=== PATIENT | female | born 1995 | race Caucasian/White ===

== ENCOUNTER 2020-08-23 18:32 | Emergency (ER) | payer OTHER, SELFPAY ==
[2020-08-23 18:43] VITALS: BP 123/80; PULSE 59; RESP 16; TEMP 36.8; O2SAT 100
--- NOTE | 2020-08-23 19:06 | ED.GENADULT ---
HPI - General Adult General Chief complaint: Extremity Injury, Upper Stated complaint: left arm/back pain Time Seen by Provider: 08/23/20 19:11 Source: patient and RN notes reviewed Mode of arrival: ambulatory Limitations: no limitations History of Present Illness HPI narrative: Patient presents today complaining of left shoulder and upper back pain since 3 PM. States the pain has been constant and has not improved or worsened. Denies any injury or trauma. Denies any numbness or tingling in the arm or hand. Prior to onset of symptoms, patient was taking an exam at school. Denies any heavy lifting recently. Denies any chest pain, shortness of breath, abdominal pain, or chills, any increased stress or anxiety. She took some Tylenol at 4 PM today without relief. States she also took some Tums. Currently rates her pain 08/26. MD complaint: Left shoulder and upper back pain Related Data Home Medications Medication Instructions Recorded Confirmed buspirone 5 mg PO DAILY 08/23/20 08/23/20 fluoxetine 40 mg PO DAILY 08/23/20 08/23/20 norethindrone-e.estradiol-iron 1 tablet PO DAILY 08/23/20 08/23/20 [Aurovela Fe 1.5/30 (28)] Allergies Allergy/AdvReac Type Severity Reaction Status Date / Time No Known Allergies Allergy Verified 08/23/20 18:36 Review of Systems Review of Systems: Narrative: CONSTITUTIONAL: Denies body aches, fever, chills, or sweats. EYES: Denies visual changes, redness, or discharge. ENT: Denies rhinorrhea, congestion, sore throat, or otalgia. CARDIOVASCULAR: Denies chest pain, palpitations, or edema. RESPIRATORY: Denies cough or dyspnea. GASTROINTESTINAL: Denies abdominal pain, nausea, vomiting, or diarrhea. GENITOURINARY: Denies dysuria or hematuria. SKIN: Denies rash, itching, or wounds. MUSCULOSKELETAL: Denies joint pain, or myalgia. + Left shoulder and upper back pain NEUROLOGIC: Denies headache, numbness, tingling, or weakness. PSYCH: Denies depression or anxiety. [facility] Past Medical History Medical History (Updated 08/23/20 @ 19:13 by Jerilyn Jordan, ANALYSIS CONSULTANT, BC) Anxiety Depression Social History Social History Gender identity (if verbalized by the patient): Female Comments At time of signature, I have reviewed and agree with nursing past medical, surgical, social and family history unless otherwise noted. Please see nursing chart for further information. There is no relevant family history pertinent to the presenting complaint Exam Narrative: Exam Narrative: GENERAL: Well-appearing, well-nourished, and in no acute distress. HEAD: Normocephalic, atraumatic. EYES: EOMI. No redness or drainage. Conjunctivae normal. ENT: Mucous membranes pink and moist. NECK: Normal AROM. Pain with ear to shoulders. Pain with full flexion of neck. Supple. No lymphadenopathy. Tenderness to left cervical paraspinal muscles. Pain extends to the superior left trapezius. Patient has several areas of point tenderness to this part of the muscle. No tenderness to the lower trapezius. Patient is tearful with palpation. CHEST: No respiratory distress. MUSCULOSKELETAL: No bony tenderness of the thoracic or lumbar spine. EXTREMITIES: Patient does have normal range of motion of the left shoulder and no bony tenderness about the left shoulder joint. She does have some pain with internal rotation of the shoulder. Distal sensation intact. Capillary refill normal. Radial pulse normal. Handgrips equal and strong. SKIN: Warm, dry, no rash. Capillary refill normal. Normal skin turgor. NEURO: No focal deficits. Alert and oriented x3. Gait steady. PSYCH: Normal affect. No signs of depression or anxiety. Course Vital Signs Vital signs: Vital Signs Temperature 98.3 F 08/23/20 18:43 Pulse Rate 59 L 08/23/20 18:43 Respiratory Rate 16 08/23/20 18:43 Blood Pressure 123/80 08/23/20 18:43 Pulse Oximetry 100 08/23/20 18:43 Temperature 98.3 F 08/23/20 18:43 Pulse Rate 59 L
== END 2020-08-23 19:15 | disposition home or self-care (01) ==
PROVIDERS: Emergency Provider Nurse Practitioner
DX: S46.812A Strain of other muscles, fascia and tendons at shoulder and upper arm level, left arm, initial encounter (principal); X58.XXXA Exposure to other specified factors, initial encounter; F41.9 Anxiety disorder, unspecified; F32.9 Major depressive disorder, single episode, unspecified
CPT/HCPCS: 99213; G0463

== ENCOUNTER 2020-09-29 11:36 | Outpatient (CLI) | payer OTHER, SELFPAY ==
[2020-10-05 00:56] LABS: NIL 0.01 IU/mL; Quantiferon TB Plus, 1T NEGATIVE (NEGATIVE); TB1-NIL 0.01 IU/mL
== END 2020-09-29 11:37 | disposition home or self-care (01) ==
DX: Z11.1 Encounter for screening for respiratory tuberculosis (principal)
CPT/HCPCS: 36415; 86480

== ENCOUNTER 2021-03-19 01:51 | Emergency (ER) | payer OTHER, SELFPAY ==
[2021-03-19] VITALS (7 sets, daily range): BP systolic 95–106; BP diastolic 53–62; PULSE 51–74; RESP 16–18; O2SAT 99–100
--- NOTE | 2021-03-19 02:08 | ECG_ITS ---
Measurements Intervals [place] Rate: 54 P: 58 MS: 145 QRS: 52 QRSD: 93 T: 60 QT: 494 QTc: 472 Interpretive Statements SINUS BRADYCARDIA BASELINE ARTIFACT- II, III, AVF, V3-V6 BORDERLINE ECG Electronically Signed On 03-19-2021 8:31:45 FLOOR REPRESENTATIVE by Jason Kaur D.O.
[2021-03-19 02:58] LABS: Basophils Absolute Auto 0.1 K/mm3 (0.0-0.1); Basophils Percent Auto 0.5 % (0.2-1.2); Eosinophils Absolute Auto 0.2 K/mm3 (0-0.3); Eosinophils Percent Auto 1.8 % (0-4.4); Hematocrit 36.2 % (37.0-47.0); Hemoglobin 12.2 g/dL (12.0-15.0); Immature Granulocyte Absolute 0.04 K/mm3 (0.00-0.031); Immature Granulocyte Percent A 0.4 % (0-0.5); Lymphocytes Absolute Auto 4.23 K/mm3 (0.9-3.2); Lymphocytes Percent Auto 41.7 % (18.3-44.2); Mean Corpuscular HGB Conc 33.7 g/dl (32-36); Mean Corpuscular Hemoglobin 30.7 pg (26-34); Mean Corpuscular Volume 91.2 fl (80-100); Mean Platelet Volume 9.3 fl (7.4-10.4); Monocytes Absolute Auto 0.7 K/mm3 (0.1-0.6); Monocytes Percent Auto 6.6 % (2.6-8.5); Platelet Count Result 320 k/mm3 (150-375); Red Blood Count 3.97 M/mm3 (4.2-5.4); Red Cell Distribution Width 12.6 % (11.5-14.5); White Blood Count 10.2 K/mm3 (4.5-10.0)
[2021-03-19] MEDS: SODIUM CHLORIDE 0.9% IV 1,000 ML 999 ML IV CONT ×2 (03:10→04:14)
[2021-03-19 03:13] LABS: Alanine Aminotransferase 18 U/L (4-35); Alkaline Phosphatase 45 U/L (38-126); Anion Gap 9 mmol/L (8-16); Aspartate Amino Transferase 21 U/L (14-36); Bilirubin,Total 0.3 mg/dL (0.2-1.3); Blood Urea Nitrogen 15 mg/dL (7-17); Calcium 8.9 mg/dL (8.4-10.2); Carbon Dioxide 23 mmol/L (22-30); Chloride 107 mmol/L (98-107); Estimated CRCL calculation 82 ml/min; Estimated Glomerular Filt Rate > 60; Glucose 126 mg/dL (65-110); Potassium 3.2 mmol/L (3.4-5.0); Sodium 139 mmol/L (137-145)
[2021-03-19 03:51] LABS: Add Urine Microscopic? YES; Appearance Urine Clear (Clear); Bilirubin Urine Negative (Negative); Blood Urine Negative (Negative); Color Urine Yellow (Yellow); Glucose Urine UA Negative (Negative); Ketones Urine Negative (Negative); Leukocyte Esterase Ur Negative LEU/UL (Negative); Mucus Urine Moderate /lpf; Nitrate Urine Negative (Negative); Protein Urine 1+ mg/dL (Negative); RBC Urine 0-2 /hpf (0-2); Specific Grav Ur 1.016 (1.001-1.035); Squamous Epithelial Cell Urine Moderate /hpf (Few)
--- NOTE | 2021-03-19 04:00 | ED.GENADULT ---
HPI - General Adult General Chief complaint: Syncope Stated complaint: Syncope Time Seen by Provider: 03/19/21 02:34 History of Present Illness HPI narrative: 25-year-old female presenting to the emergency department for evaluation after having sequential syncopal and near syncopal episodes. Patient states that she did have a 20 mg edible this evening and was sleeping on the couch. Patient states when she woke up on the couch she felt dizzy and lightheaded. Patient states multiple times she tried to stand up but kept passing out. Patient denies any chest pain or shortness of breath. Patient denies any previous cardiac history. Patient states she has had vasovagal episodes before. Patient states in the emergency department she does feel improved at this time. Related Data Home Medications Medication Instructions Recorded Confirmed buspirone 5 mg PO DAILY 08/23/20 08/23/20 norethindrone-e.estradiol-iron 1 tablet PO DAILY 08/23/20 08/23/20 [Aurovela Fe 1.5/30 (28)] citalopram mg 03/19/21 Allergies Allergy/AdvReac Type Severity Reaction Status Date / Time No Known Allergies Allergy Verified 03/19/21 02:06 Review of Systems Review of Systems: CONSTITUTIONAL: Near syncope EYES: Denies visual changes, redness, or discharge. ENT: Denies rhinorrhea, congestion, sore throat, or otalgia. CARDIOVASCULAR: Denies chest pain, palpitations, or edema. RESPIRATORY: Denies cough or dyspnea. GASTROINTESTINAL: Denies abdominal pain, nausea, vomiting, or diarrhea. GENITOURINARY: Denies dysuria or hematuria. SKIN: Denies rash or itching. MUSCULOSKELETAL: Denies back pain, joint pain, or myalgia. NEUROLOGIC: Denies headache, numbness, or weakness. PSYCHIATRIC: Denies anxiety or depression. [facility] Past Medical History Medical History (Updated 03/19/21 @ 06:16 by Chucho Lang MD) Anxiety Depression Social History Social History Gender identity (if verbalized by the patient): Female Exam Narrative: APPEARANCE: Well appearing, no pain in distress, well-nourished. HEAD: normocephalic, atraumatic. EYES: PERRLA/EOMI, conjunctivae clear. NECK: Supple. No adenopathy, no masses. RESPIRATORY: Airway patent, respirations nonlabored. Clear to auscultation bilaterally, no rales, rhonchi, wheezing. CARDIOVASCULAR: Regular rate and rhythm without murmurs rubs or gallops. ABDOMINAL: Soft, nontender, nondistended, normal bowel sounds MUSCULOSKELETAL: Moves all extremities. Strength/ROM intact, No edema, No calf tenderness. NEURO: Alert. Cranial nerves II through XII intact. Good gait. Good coordination SKIN: Warm, dry. Normal Color PSYCHIATRIC: Normal affect/mood. Course Course Emergency Course: Patient was treated with 2 L of normal saline. Patient's repeat orthostatic vitals were normal. Patient was asymptomatic when standing. Patient does admit to using 20 mg of THC edible. Patient also suspects he may have been dehydrated. Reevaluation(s) Reevaluation #1: On reevaluation patient states she does feel significantly improved. Patient was able to ambulate without issues. Patient was educated on reasons to return to the emergency room. Patient was advised to hold off on caffeine and energy drinks and to push fluids. all questions and concerns were addressed. Patient was in no distress at the time of discharge from her department Vital Signs Vital signs: Vital Signs Pulse Rate 57 L 03/19/21 01:55 Pulse Rate 70 03/19/21 06:27 Respiratory Rate 16 03/19/21 06:27 Blood Pressure 103/61 03/19/21 06:27 Pulse Oximetry 99 03/19/21 06:27 Medical Decision Making Vital Signs Vital Signs: Vital Signs Pulse Rate 57 L 03/19/21 01:55 Pulse Rate 70 03/19/21 06:27 Respiratory Rate 16 03/19/21 06:27 Blood Pressure 103/61 03/19/21 06:27 Pulse Oximetry 99 03/19/21 06:27 Lab Data Lab results reviewed: Yes I reviewed the patient's lab results. Result diagrams: 03/19/21 02:42 01
== END 2021-03-19 06:28 | disposition home or self-care (01) ==
PROVIDERS: Emergency Provider Emergency Medicine
DX: I95.1 Orthostatic hypotension (principal); F41.9 Anxiety disorder, unspecified; F32.9 Major depressive disorder, single episode, unspecified
CPT/HCPCS: 36415; 80053; 81001; 81025; 83735; 84443; 85025; 93005; 96360; 96361; 99283; J7030